=== PATIENT | male | born 1990 | race Caucasian/White ===

== ENCOUNTER 2017-01-19 17:05 | Emergency (ER) | payer OTHER ==
[2017-01-19 17:11] VITALS: BP 142/86
--- NOTE | 2017-01-19 17:21 | ED Physician Documentation ---
PD HPI LOWER EXT INJURY - Stated complaint Stated Complaint: L ANKLE INJURY - Chief complaint Chief Complaint: Ext Problem - History obtained from History obtained from: Patient, Family - History of Present Illness PD HPI LOW EXT INJURY LOCATION: Left, Ankle Type of injury: Twist (inversion injury) Where injury occurred: Street Timing - onset: Today Timing - duration: Hours (1) Timing - details: Abrupt onset Pain level max: 5 Pain level now: 4 Improved by: Rest Worsened by: Moving, Palpating Associated symptoms: Swelling (lateral malleolus). No: Weakness, Numbness, Tingling Contributing factors: No: Anticoagulated, Prior ortho surgery, Prosthetic joint Similar symptoms before: Has not had sx before Recently seen: Not recently seen Review of Systems GI: denies: Nausea, Vomiting Skin: denies: Rash Musculoskeletal: denies: Neck pain, Back pain PD PAST MEDICAL HISTORY - Past Medical History Past Medical History: No - Past Surgical History Past Surgical History: No - Present Medications Home Medications: Ambulatory Orders Medication Instructions Recorded Confirmed Ibuprofen [Motrin] 800 mg PO Q8H PRN #30 tablet 01/19/17 - Allergies Allergies/Adverse Reactions: Allergies Allergy/AdvReac Type Severity Reaction Status Date / Time acetaminophen [From Vicodin] Allergy Rash Verified 07/01/16 20:50 hydrocodone bitartrate * Allergy Rash Verified 07/01/16 20:50 [From Vicodin] venom-honey bee Allergy Respiratory Verified 07/01/16 20:50 [bee venom (honey bee)] - Living Situation Living Situation: reports: With family Living Arrangement: reports: At home - Social History Does the pt smoke?: No Smoking Status: Never smoker Does the pt drink ETOH?: No Does the pt have substance abuse?: No - Immunizations Immunizations are current?: Yes - POLST Patient has POLST: No PD ED PE NORMAL - Vitals Vital signs reviewed: Yes - General General: Alert and oriented X 3, No acute distress - Extremities Extremities: Other (L ankle - normal foot and base of 5th MT exam. no tenderness. L lateral malleolus has STS with TTP. NVI. No prox tib/fib TTP.) - Neuro Neuro: Alert and oriented X 3 Results - Vitals Vitals: Vital Signs - 24 hr 01/19/17 17:09 Temperature 36.4 C L Heart Rate 62 Respiratory 18 Rate Blood Pressure 142/86 H O2 Saturation 97 Oxygen O2 Source Room air - Rads (name of study) L ankle xray Radiology: Prelim report reviewed, EMP read contemporaneously, See rad report ( no fracture or dislocation) PD MEDICAL DECISION MAKING - ED course Complexity details: reviewed results, re-evaluated patient, considered differential, d/w patient ED course: Patient presents to the emergency department after inversion injury of the left ankle. Has soft tissue swelling at the lateral malleolus. Negative x-ray. Placed in a gel splint for comfort and given crutches for home. Will place on Motrin for pain. Counseled regarding missed fractures secondary to acute swelling and may need repeat xrays if not improving. Patient counseled regarding signs and symptoms for which I believe and urgent re-evaluation would be necessary. Patient with good understanding of and agreement to plan and is comfortable going home at this time This document was made in part using voice recognition software. While efforts are made to proofread this document, sound alike and grammatical errors may occur. Departure - Departure Disposition: 01 Home, Self Care Clinical Impression: Left ankle sprain Qualifiers: Encounter type: initial encounter Involved ligament of ankle: unspecified ligament Qualified Code(s): S93.402A - Sprain of unspecified ligament of left ankle, initial encounter Condition: Good Instructions: ED Sprain Ankle W X Ray Follow-Up: your,doctor within 1 week [Other] Prescriptions: Ibuprofen [Motrin] 800 mg PO Q8H PRN #30 tablet PRN Reason: PAIN &/OR FEVER Comments: Wear the splint and stay non-weight bearing on the left ankle until released by your doctor.
--- NOTE | 2017-01-19 17:38 | XRAY Preliminary Report ---
Exam: XR Ankle 3 View LT IMPRESSION: No evidence of fracture or dislocation. [facility] SITE ID: [id number]
--- NOTE | 2017-01-19 17:40 | XRAY Report ---
EXAM: LEFT ANKLE RADIOGRAPHY EXAM DATE: 01/19/2017 05:31 PM. CLINICAL HISTORY: Inversion injury, lat malleolus TTP. COMPARISON: None. TECHNIQUE: 3 views. FINDINGS: Bones: No fracture or focal bony lesion. Joints: No evidence of dislocation. Soft Tissues: There is lateral ankle soft tissue swelling. IMPRESSION: No evidence of fracture or dislocation. [facility] Referring Provider Line: [phone] SITE ID: [id number]
[2017-01-19] MEDS ORDERED: IBUPROFEN 800 MG TABLET PO ONE (17:47)
[2017-01-19] MEDS: IBUPROFEN 800 MG TABLET PO STA (17:49)
== END 2017-01-19 18:00 | disposition home or self-care (01) ==
LOC: ED 17:05
DX: S93.402A Sprain of unspecified ligament of left ankle, initial encounter (principal); X50.0XXA Overexertion from strenuous movement or load, initial encounter; Y92.488 Other paved roadways as the place of occurrence of the external cause
CPT/HCPCS: 99283

== ENCOUNTER 2017-05-30 11:40 | Emergency (ER) | payer OTHER ==
[2017-05-30 11:53] VITALS: BP 141/85
--- NOTE | 2017-05-30 12:20 | ED Physician Documentation ---
PD HPI HEENT - Stated complaint Stated Complaint: L EAR PX - Chief complaint Chief Complaint: Heent - History obtained from History obtained from: Patient - History of Present Illness Timing - onset: Other (He was scuba diving about a week ago. Since that date he has had gradual and worsening left-sided ear pain with diminished hearing but no other URI symptoms.) - Treatment prior to arrival Treatment [place] was put on maybe Cortisporin and naproxen. He is not getting better, in fact need something more for pain. No fevers. Review of Systems Constitutional: denies: Fever, Chills Ears: reports: Loss of hearing, Ear pain, Tinnitus/ringing. denies: Drainage/ discharge, Foreign body Nose: denies: Rhinorrhea / runny nose, Congestion PD PAST MEDICAL HISTORY - Past Surgical History Past Surgical History: No - Present Medications Home Medications: Ambulatory Orders Medication Instructions Recorded Confirmed Ciproflox/Dexameth Otic Drops 4 drops OT BID #1 bottle 05/30/17 [Ciprodex] Oxycodone HCl/Acetaminophen 1 - 2 tab PO Q4H PRN #15 tablet 05/30/17 [Percocet 5-325 mg Tablet] - Allergies Allergies/Adverse Reactions: Allergies Allergy/AdvReac Type Severity Reaction Status Date / Time acetaminophen [From Vicodin] Allergy Rash Verified 05/30/17 11:53 hydrocodone bitartrate * Allergy Rash Verified 05/30/17 11:53 [From Vicodin] venom-honey bee Allergy Respiratory Verified 05/30/17 11:53 [bee venom (honey bee)] - Social History Does the pt smoke?: No Smoking Status: Never smoker Does the pt drink ETOH?: No Does the pt have substance abuse?: No - Immunizations Immunizations are current?: Yes - POLST Patient has POLST: No PD ED PE NORMAL - Vitals Vital signs reviewed: Yes - General General: Alert and oriented X 3, No acute distress - HEENT HEENT: Other (Nonocclusive external otitis of the left ear without clinical evidence of mastoiditis.) - Neck Neck: Supple, no meningeal sign, No bony TTP - Neuro Neuro: Alert and oriented X 3, Normal speech - Psych Psych: Normal mood, Normal affect Results - Vitals Vitals: Vital Signs - 24 hr 05/30/17 11:49 Temperature 36.5 C Heart Rate 89 Respiratory 18 Rate Blood Pressure 141/85 H O2 Saturation 99 Oxygen O2 Source Room air Departure - Departure Disposition: 01 Home, Self Care Clinical Impression: External otitis of left ear Qualifiers: Otitis externa type: swimmer's ear Chronicity: acute Qualified Code(s): H60.332 - Swimmer's ear, left ear Condition: Good Record reviewed to determine appropriate education?: Yes Instructions: ED Otitis Externa Prescriptions: Ciproflox/Dexameth Otic Drops [Ciprodex] 4 drops OT BID #1 bottle Oxycodone HCl/Acetaminophen [Percocet 5-325 mg Tablet] 1 - 2 tab PO Q4H PRN #15 tablet PRN Reason: Pain Comments: Call your doctor to arrange a follow-up appointment, make the next available appointment. In the interim, return anytime if worse or if new symptoms develop. Your blood pressure was elevated today on check into the emergency department. This does not mean that you have hypertension, it is a common phenomenon to come to the emergency department and have elevated blood pressure. I recommend that she see her primary care physician within the week to have it rechecked when you are feeling better. Do not drink or drive while taking narcotic pain medication. Note that many narcotic pain relievers also contain Tylenol/acetaminophen. Please ensure that your total dose of acetaminophen from all sources does not exceed 3 g (3000 mg) per day. You may get constipated while on this medication. Take a stool softener such as Colace twice a day while you are on it. Also add an [id number] laxative such as senna or MiraLAX on any day that you do not have a bowel movement. If you received a narcotic pain medication or sedative while in the emergency department, do not drive for the next 24 hours.
== END 2017-05-30 12:27 | disposition home or self-care (01) ==
LOC: ED 11:40
DX: H60.332 Swimmer's ear, left ear (principal); R03.0 Elevated blood-pressure reading, without diagnosis of hypertension
CPT/HCPCS: 99283

== ENCOUNTER 2017-08-10 23:26 | Emergency (ER) | payer OTHER ==
[2017-08-10 23:59] VITALS: BP 152/104
[2017-08-11] MEDS ORDERED: AZITHROMYCIN 250 MG TABLET PO STA (01:22)
[2017-08-11] MEDS ORDERED: DEXAMETHASONE 10 MG/ML VIAL PO STA (01:22)
--- NOTE | 2017-08-11 01:25 | ED Physician Documentation ---
PD HPI URI - Stated complaint Stated Complaint: COUGH,SHORTNESS OF BREATH - Chief complaint Chief Complaint: Resp - History obtained from History obtained from: Patient - History of Present Illness Timing - onset: How many days ago (3) Timing duration: Days (3) Timing details: Gradual onset, Still present Associated symptoms: Fever, Chills, Nasal congestion, Rhinorrhea, Dry cough, Chest pain Contributing factors: Sick contact (nephew with sinus) Improves by: Rest, Medication Worsened by: Activity Similar symptoms before: Has not had sx before - Additional information Additional information: 27-year-old male with a cough for the past 3 days has some burning in his anterior chest with coughing he is having coughing paroxysms that are hard and he has not been able to sleep. Review of Systems Constitutional: reports: Fever, Chills Eyes: denies: Decreased vision Ears: denies: Ear pain Nose: reports: Rhinorrhea / runny nose, Congestion Throat: denies: Sore throat Cardiac: reports: Chest pain / pressure Respiratory: reports: Cough. denies: Dyspnea GI: denies: Nausea, Vomiting : denies: Dysuria PD PAST MEDICAL HISTORY - Past Surgical History Past Surgical History: No - Present Medications Home Medications: Ambulatory Orders Medication Instructions Recorded Confirmed Azithromycin [Zithromax] 250 mg PO DAILY #4 tablet 08/11/17 Benzonatate [Tessalon] 100 - 200 mg PO TID PRN #20 capsule 08/11/17 - Allergies Allergies/Adverse Reactions: Allergies Allergy/AdvReac Type Severity Reaction Status Date / Time acetaminophen [From Vicodin] Allergy Rash Verified 05/30/17 11:53 hydrocodone bitartrate * Allergy Rash Verified 05/30/17 11:53 [From Vicodin] venom-honey bee Allergy Respiratory Verified 05/30/17 11:53 [bee venom (honey bee)] - Social History Does the pt smoke?: No Smoking Status: Never smoker Does the pt drink ETOH?: No Does the pt have substance abuse?: No - Immunizations Immunizations are current?: Yes - POLST Patient has POLST: No PD ED PE NORMAL - Vitals Vital signs reviewed: Yes (hypertensive) - General General: Alert and oriented X 3, No acute distress, Well developed/nourished - HEENT HEENT: Atraumatic, PERRL, EOMI, Other (both TM's are erythematous with indistinct landmarks.) - Neck Neck: Supple, no meningeal sign, No bony TTP - Cardiac Cardiac: RRR, No murmur - Respiratory Respiratory: No respiratory distress, Clear bilaterally - Abdomen Abdomen: Soft, Non tender - Back Back: No CVA TTP, No spinal TTP - Derm Derm: Normal color, No rash - Extremities Extremities: No deformity, No edema - Neuro Neuro: No motor deficit, No sensory deficit - Psych Psych: Normal mood, Normal affect Results - Vitals Vitals: Vital Signs - 24 hr 08/10/17 23:56 Temperature 36.5 C Heart Rate 59 L Respiratory 20 Rate Blood Pressure 152/104 H O2 Saturation 100 Oxygen O2 Source Room air PD MEDICAL DECISION MAKING - ED course Complexity details: reviewed old records, considered differential, d/w patient ED course: 27-year-old male with acute upper respiratory tract infection appears to have otitis on examination. He is administered dexamethasone 10 mg orally and azithromycin 500 mg orally. His chief complaint is a cough and coughing paroxysms. His lungs are clear. He has no wheeze or diminished breath sounds. Departure - Departure Disposition: 01 Home, Self Care Clinical Impression: Otitis media Qualifiers: Otitis media type: suppurative Chronicity: acute Laterality: bilateral Recurrence: not specified as recurrent Spontaneous tympanic membrane rupture: without spontaneous rupture Qualified Code(s): H66.003 - Acute suppurative otitis media without spontaneous rupture of ear drum, bilateral Condition: Stable Instructions: ED Otitis Media Acute Adult Follow-Up: Jet Pool MD [Primary Care Provider] - Prescriptions: Benzonatate [Tessalon] 100 - 200 mg PO TID PRN #20 capsule PRN Reason: Cough Azithromycin [Zithromax] 250 mg PO DAILY #4 tablet Comments: Today in the Emergency Department your blood pressure was elevated. This can happen from the stress of the visit itself, from a current illness or circumstance or from uncontrolled hypertension. If you take blood pressure medications take your usual mediations, have your blood pressure re-checked in an appropriate setting and follow up any elevation with your primary care doctor. Forms: Activity restrictions
[2017-08-11] MEDS ORDERED: BENZONATATE 100 MG CAPSULE PO STA (01:31)
[2017-08-11] MEDS ORDERED: AZITHROMYCIN 250 MG TABLET PO ONE (01:36)
[2017-08-11] MEDS ORDERED: DEXAMETHASONE 10 MG/ML VIAL ONE (01:36)
[2017-08-11] MEDS ORDERED: BENZONATATE 100 MG CAPSULE PO ONE (01:39)
== END 2017-08-11 02:49 | disposition home or self-care (01) ==
LOC: ED 23:26
DX: J06.9 Acute upper respiratory infection, unspecified (principal); H66.003 Acute suppurative otitis media without spontaneous rupture of ear drum, bilateral; R03.0 Elevated blood-pressure reading, without diagnosis of hypertension
CPT/HCPCS: 99283; A9270

== ENCOUNTER 2017-11-01 08:50 | Emergency (ER) | payer OTHER ==
[2017-11-01 09:32] LABS: BASOPHILS # (AUTO) 0.1 10^3/uL (0.0-0.1); BASOPHILS % (AUTO) 0.4 %; EOSINOPHILS % (AUTO) 0.2 %; HCT - HEMATOCRIT 47.6 % (42.0-52.0); HGB - HEMOGLOBIN 16.1 g/dL (14.0-18.0); LYMPHOCYTES # (AUTO) 0.5 10^3/uL (1.5-3.5); LYMPHOCYTES % (AUTO) 3.6 %; MEAN CORPUSCULAR HEMOGLOBIN 28.5 pg (27.0-31.0); MEAN CORPUSCULAR HGB CONC 33.8 g/dL (32.0-36.0); MEAN CORPUSCULAR VOLUME 84.3 fL (80.0-94.0); MEAN PLATELET VOLUME 7.5 fL (7.4-11.4); MONOCYTES # (AUTO) 0.7 10^3/uL (0.0-1.0); MONOCYTES % (AUTO) 5.3 %; NEUTROPHILS % (AUTO) 90.5 %; NUCLEATED RED BLOOD CELLS AUTO 0.3 /100WBC; RED BLOOD COUNT 5.65 10^6/uL (4.70-6.10); RED CELL DISTRIBUTION WIDTH 13.2 % (12.0-15.0); UNCORRECTED WHITE BLOOD COUNT 13.3 x10^3/uL; WHITE BLOOD COUNT 13.3 x10^3/uL (4.8-10.8)
[2017-11-01 09:45] LABS: ALBUMIN/GLOBULIN RATIO 1.2 (1.0-2.2); BILIRUBIN,TOTAL 1.2 mg/dL (0.2-1.0); CALCIUM 9.7 mg/dL (8.5-10.3); CREATININE 1.4 mg/dL (0.6-1.2); POTASSIUM 4.1 mmol/L (3.5-5.0); TOTAL PROTEIN 8.7 g/dL (6.7-8.2)
[2017-11-01 11:51] LABS: BILIRUBIN,URINE NEGATIVE (NEGATIVE); UA w/ MICROSCOPIC CHARGE YES
[2017-11-01] MEDS ORDERED: ONDANSETRON 4 MG/2 ML VIAL IVP STA (12:02)
[2017-11-01] MEDS ORDERED: SODIUM CHLORIDE 0.9% 1,000 ML IV ONE ×3 (12:03→14:32)
[2017-11-01] MEDS ORDERED: LOPERAMIDE 2 MG CAPSULE PO STA (12:03)
[2017-11-01 12:06] LABS: UR CULTURE IF IND NOT INDICATED
[2017-11-01] MEDS ORDERED: LOPERAMIDE 2 MG CAPSULE PO ONE (12:44)
[2017-11-01] MEDS ORDERED: ONDANSETRON 4 MG/2 ML VIAL ONE (12:44)
[2017-11-01] MEDS ORDERED: HYDROmorphone 1 MG/ML SYRINGE IVP STA (12:55)
[2017-11-01] MEDS ORDERED: HYDROmorphone 1 MG/ML SYRINGE ONE (13:06)
[2017-11-01 13:11] VITALS: BP 127/66
[2017-11-01] MEDS ORDERED: PROMETHAZINE INJ 25 MG in SODIUM CHLORIDE 0.9% 50 ML IV STA (14:32)
--- NOTE | 2017-11-01 14:35 | ED Physician Documentation ---
PD HPI NVD - Stated complaint Stated Complaint: N/V/D - Chief complaint Chief Complaint: Abd Pain - History obtained from History obtained from: Patient, Family - History of Present Illness Timing - onset: How many days ago (3) Timing - duration: Days (3) Timing - details: Gradual onset, Still present Associated symptoms: Abdominal pain, Dizzy, Near syncope / syncope Contributing factors: Sick contact ( with similar symptoms) Improved by: Laying still, Vomiting Worsened by: Eating, Moving, Breathing, Position, Palpation Similar symptoms before: Has not had sx before Recently seen: Not recently seen - Additonal information Additional information: 27-year-old previously healthy male withA 3 day history of nausea vomiting and diarrhea has become dehydrated. He states that he and his were traveling across the past past was closed and a turnaround to go back and they had some sandwiches in the car that they ate when he came back home. He is worried that this may be the source of food contamination for his illness. He has had continued diarrhea and vomiting. He did have some Zofran at home which he tried and this did not seem to help. His has become ill one day after he did and there is a GI bug in the community now with a lot of diarrhea. Review of Systems Constitutional: reports: Fever, Chills, Myalgias, Fatigue Eyes: denies: Decreased vision Ears: denies: Ear pain Nose: denies: Congestion Throat: denies: Sore throat Cardiac: denies: Chest pain / pressure, Palpitations Respiratory: denies: Dyspnea, Cough GI: reports: Abdominal Pain, Nausea, Vomiting, Diarrhea : denies: Dysuria, Frequency Skin: denies: Rash Musculoskeletal: reports: Back pain. denies: Neck pain Neurologic: reports: Numbness. denies: Generalized weakness, Focal weakness PD PAST MEDICAL HISTORY - Past Surgical History Past Surgical History: No - Present Medications Home Medications: Ambulatory Orders Medication Instructions Recorded Confirmed Hydrochlorothiazide 12.5 mg PO DAILY 11/01/17 11/01/17 Promethazine [Phenergan] 25 - 50 mg PO Q6H PRN #10 tab 11/01/17 - Allergies Allergies/Adverse Reactions: Allergies Allergy/AdvReac Type Severity Reaction Status Date / Time acetaminophen [From Vicodin] Allergy Rash Verified 05/30/17 11:53 hydrocodone bitartrate * Allergy Rash Verified 05/30/17 11:53 [From Vicodin] venom-honey bee Allergy Respiratory Verified 05/30/17 11:53 [bee venom (honey bee)] - Social History Does the pt smoke?: No Smoking Status: Never smoker Does the pt drink ETOH?: No Does the pt have substance abuse?: No - Immunizations Immunizations are current?: Yes - POLST Patient has POLST: No PD ED PE NORMAL - Vitals Vital signs reviewed: Yes (tachy ) - General General: No acute distress, Well developed/nourished - HEENT HEENT: Atraumatic, PERRL, EOMI, Other (dry mucous membranes) - Neck Neck: Supple, no meningeal sign, No bony TTP - Cardiac Cardiac: No murmur, Other (tachy ) - Respiratory Respiratory: No respiratory distress, Clear bilaterally - Abdomen Abdomen: Soft, Other (epigastric tenderness) - Back Back: No CVA TTP, No spinal TTP - Derm Derm: Normal color, Warm and dry, No rash - Extremities Extremities: No deformity, No edema - Neuro Neuro: Alert and oriented X 3, No motor deficit, No sensory deficit, Normal speech Eye Opening: Spontaneous Motor: Obeys Commands Verbal: Oriented GCS Score: 15 - Psych Psych: Normal mood, Normal affect Results - Vitals Vitals: Vital Signs - 24 hr 11/01/17 11/01/17 11/01/17 09:04 10:38 13:10 Temperature 36.0 C L Heart Rate 109 H 90 86 Respiratory 18 12 18 Rate Blood Pressure 119/79 113/69 127/66 O2 Saturation 98 98 98 Oxygen O2 Source Room air - Labs Labs: Laboratory Tests 11/01/17 11/01/17 11/01/17 09:20 09:20 11:35 WBC 13.3 H RBC 5.65 Hgb 16.1 Hct 47.6 MCV 84.3 MCH 28.5 MCHC 33.8 RDW 13.2 Plt Count 300 MPV 7.5 Neut # 12.0 H Lymph # 0.5 L [place] # 0.7 Eos # 0.0 Baso # 0.1 Absolute Nucleated RBC 0.03 Nucleated RBC % 0.3 Sodium 141 Potassium 4.1 Chloride 100 L Carbon Dioxide 25 Anion Gap 16.0 H BUN 20 Creatinine 1.4 H Estimated GFR (MDRD) 60 L Glucose 153 H Calcium 9.7 Total Bilirubin 1.2 H AST 33 ALT 52 Alkaline Phosphatase 104 Total Protein 8.7 H Albumin 4.8 Globulin 3.9 Albumin/Globulin Ratio 1.2 Lipase 12 L Urine Color DARK YELLOW Urine Clarity CLEAR Urine pH 6.0 Ur Specific [place] >=1.030 H Urine Protein 30 H Urine Glucose (UA) NEGATIVE Urine Ketones NEGATIVE Urine Occult Blood NEGATIVE Urine Nitrite NEGATIVE Urine Bilirubin NEGATIVE Urine Urobilinogen 0.2 (NORMAL) Ur Leukocyte Esterase NEGATIVE Urine RBC 0-5 Urine WBC 4-5 Ur Squamous Epith Cells RARE Squamous Urine Bacteria Few Urine Casts 11-25 Hyaline Casts Urine Mucus Marked Strands Ur Microscopic Review INDICATED Urine Culture Comments NOT INDICATED Procedures - IVC sono (time) 1430 Bedside IVC sono: IVC measures (cm) (0.98), IVC collapsed c insp (cm) (complete after 2 liters saline.), Significant dehydration PD MEDICAL DECISION MAKING - ED course Complexity details: reviewed results, re-evaluated patient, considered differential, d/w patient, d/w family ED course: 27-year-old male with a 3 day history of nausea vomiting diarrhea has become significantly dehydrated. He is given 2 L of saline 4 mg of Zofran intravenously continues to have some nausea and vomiting and reevaluation of the inferior vena cava at the conclusion of 2 L reveals continued dehydration. He will need at least 1 more liter of fluid and we will try some Phenergan. The phenergan does prove to be more effective and the patient is discharged with his . Departure - Departure Disposition: 01 Home, Self Care Clinical Impression: Gastroenteritis, Dehydration Condition: Stable Instructions: ED Dehydration, ED Gastroenteritis Viral Follow-Up: Jet Pool MD [Primary Care Provider] - Prescriptions: Promethazine [Phenergan] 25 - 50 mg PO Q6H PRN #10 tab PRN Reason: Nausea / Vomiting Forms: Activity restrictions Discharge Date/Time: 11/01/17 16:51
[2017-11-01] MEDS ORDERED: PROMETHAZINE 25 MG/1 ML VIAL ONE (15:08)
== END 2017-11-01 16:51 | disposition home or self-care (01) ==
LOC: ED 08:50
DX: E86.0 Dehydration (principal); K52.9 Noninfective gastroenteritis and colitis, unspecified
CPT/HCPCS: 36415; 80053; 81001; 83690; 85025; 96361; 96374; 96375; 99283; 99284; A9270; J1170; J7040; 81003; 87086